=== PATIENT | female | born 1985 | race Two or more races ===

== ENCOUNTER 2025-05-15 11:25 | Emergency (ER) | payer OTHER ==
[~2025-05-15] VITALS: Ht 180.3 cm; Wt 136.1 kg
[~2025-05-15 11:25] MED LIST: BACTROBAN22 GM TP; KETO10TA2 PO; NORFLEX100MG PO; SEPTRA DS TABLE1 TAB PO
[2025-05-15 13:48] LABS: BASO % 0.2 % (0.1-1.2); EOS # 0.30 (0.04-0.54); EOS % 2.4 % (0.7-7.0); LYMPH # 2.53 (1.18-3.74); LYMPH % 20.0 % (19.3-53.1); MEAN PLATELET VOLUME 10.10 fl (9.4-12.4); MONO # 0.85 (0.24-0.82); MONO % 6.7 % (4.7-12.5); NEUT # 8.89 (1.56-6.13); NEUT % 70.3 % (34.0-71.1); RED CELL DISTRIBUTION WIDTH 16.4 % (11.6-14.4)
[2025-05-15] MEDS ORDERED: CEFTRIAXONE SODIUM 1,000 MG VIAL IM ONE (14:45)
[2025-05-15 14:57] LABS: COVID-19 AG NEGATIVE (NEGATIVE)
[2025-05-15 15:29] LABS: ALT/SGPT 29 U/L (12-78); AST/SGOT 20 U/L (15-37); BILIRUBIN TOTAL 0.33 mg/dL (0.3-1.2); BUN CREA RATIO 12 (7.0-25.0); CREATININE SERUM 0.65 mg/dL (0.55-1.02); GFR 102.01; GLOBULINA 3.5 G/DL (2.4-3.5); GLUCOSE FASTING 90 mg/dL (65-100); OSMOLALITY SERUM 283 MOSM/KG (275-295); TSH 1.730 uIU/mL (0.358-3.74)
[2025-05-15 15:31] LABS: HCG QUANTITATIVE < 1 mUI/mL (1-3)
[2025-05-15] MEDS ORDERED: PEPCID AC20 MG PO (15:50)
[2025-05-15] MEDS ORDERED: AZITHROMYCIN500 MG PO (15:50)
[2025-05-15] MEDS ORDERED: LEVALBUTER0.63 MG/3 IH (15:50)
[2025-05-15] MEDS ORDERED: MEDROLPACK PO (15:50)
== END 2025-05-15 15:51 | disposition home or self-care (01) ==
LOC: ER 11:25
PROVIDERS: General Practice
DX: R60.0 Localized edema (principal); R53.1 Weakness; J45.909 Unspecified asthma, uncomplicated; Z20.822 Contact with and (suspected) exposure to COVID-19